=== PATIENT | female | born 1985 | race Caucasian/White ===

== ENCOUNTER 2016-05-25 12:00 | Emergency (ER) | payer SELFPAY ==
[~2016-05-25] VITALS: Wt 100.0 kg
[~2016-05-25 12:00] MED LIST: AMOX250C PO; IBUP-1542 PO; LAMO100T83 PO; LORA-444 PO; METO5TAB58 PO; OXYC-284 PO; PANT40TA3 PO; PHEN100C PO; ULT50 PO
== END 2016-05-25 14:03 | disposition left against medical advice (07) ==
LOC: FTE 12:00
DX: Z53.21 Procedure and treatment not carried out due to patient leaving prior to being seen by health care provider (principal)

== ENCOUNTER 2016-08-29 09:32 | Emergency (ER) | payer OTHER ==
[~2016-08-29] VITALS: Wt 88.0 kg
[~2016-08-29 09:32] MED LIST changes: +TRAM50TA2 PO; -ULT50 PO
[2016-08-29 10:38] LABS: ADD SCAN DIFF NO
[2016-08-29 10:41] LABS: ADD UMIC YES; URINE BILIRUBIN (Dip) 2+ (NEGATIVE); URINE BLOOD (Dip) 2+ (NEGATIVE); URINE COLOR YELLOW (YELLOW); URINE GLUCOSE (Dip) NEGATIVE (NEGATIVE); URINE KETONES (Dip) 15 (NEGATIVE); URINE LEUKOCYTE ESTERASE (Dip) NEGATIVE (NEGATIVE); URINE NITRITE (Dip) NEGATIVE (NEGATIVE); URINE TOTAL PROTEIN (Dip) 1+ (NEGATIVE); URINE UROBILINOGEN (Dip) 0.2 E.U./dL (0.1-1.0)
[2016-08-29 10:44] LABS: BASOPHILS % 0.3 % (0.0-2.0); EOSINOPHILS # 0.2 10^3/ul (0.0-0.5); EOSINOPHILS % 5.5 % (0.0-7.0); HEMATOCRIT 35.1 % (37.0-47.0); HEMOGLOBIN 11.3 g/dl (12.0-16.0); LYMPHOCYTES # 1.1 10^3/ul (0.8-2.9); LYMPHOCYTES % 32.5 % (15.0-51.0); MEAN CORPUSCULAR HEMOGLOBIN 25.6 pg (29.0-33.0); MEAN CORPUSCULAR HGB CONC 32.2 g/dl (32.0-37.0); MEAN CORPUSCULAR VOLUME 79.6 fl (82.0-101.0); MEAN PLATELET VOLUME 9.1 fl (7.4-10.4); MONOCYTE # 0.3 10^3/ul (0.3-0.9); MONOCYTES % 9.7 % (0.0-11.0); NEUTROPHIL # 1.7 10^3/ul (1.6-7.5); NEUTROPHILS % 51.7 % (39.0-77.0); PLATELET COUNT 235 10^3/UL (140-415); RED BLOOD COUNT 4.41 10^6/ul (4.20-5.40); RED CELL DISTRIBUTION WIDTH 14.9 % (11.5-14.5); WHITE BLOOD COUNT 3.3 10^3/ul (4.8-10.8)
[2016-08-29 10:51] LABS: ALBUMIN 4.3 g/dl (3.3-4.9); CHLORIDE 102 mmol/L (97-110)
[2016-08-29 10:52] LABS: SODIUM 143 mmol/L (135-144)
[2016-08-29 10:53] LABS: CREATININE 0.61 mg/dl (0.44-1.00)
[2016-08-29 10:54] LABS: ALANINE AMINOTRANSFERASE 56 IU/L (13-69); ALBUMIN/GLOBULIN RATIO 1.48; ALKALINE PHOSPHATASE 53 IU/L (42-121); ANION GAP 19 (8-16); ASPARTATE AMINO TRANSFERASE 50 IU/L (15-46); BILIRUBIN,INDIRECT 0.5 mg/dl (0-1.1); BILIRUBIN,TOTAL 0.5 mg/dl (0.2-1.3); BLOOD UREA NITROGEN 14 mg/dl (7-20); CARBON DIOXIDE 25 mmol/L (21-31); GLUCOSE 88 mg/dl (70-220); TOTAL PROTEIN 7.2 g/dl (6.1-8.1)
[2016-08-29 10:55] LABS: CALCIUM 9.4 mg/dl (8.4-10.2)
[2016-08-29 10:56] LABS: ACETAMINOPHEN < 10.0 ug/ml (10.0-30.0); ETHANOL < 10.0 mg/dl; SALICYLATE < 1.0 mg/dl (5.0-30.0)
[2016-08-29 11:03] LABS: BENZODIAZEPINES Negative (NEGATIVE)
[2016-08-29 11:05] LABS: CANNABINOIDS Positive (NEGATIVE)
[2016-08-29 11:06] LABS: OPIATES Positive (NEGATIVE)
[2016-08-29 11:09] LABS: ICTOTEST NEGATIVE (NEGATIVE)
[2016-08-29 11:10] LABS: BACTERIA,URINE OCCASIONAL
[2016-08-29 11:15] LABS: BARBITURATES Negative (NEGATIVE); COCAINE Negative (NEGATIVE)
--- NOTE | 2016-08-29 13:07 | PSY ---
Date/Time of Note Date/Time of Note DATE: 08/29/16 TIME: 12:55 Psychiatric Subjective Eval Consent Pt consented to telemedicine: Yes Subjective Evaluation Patient location: emergency Chief Complaint: SHAKY AND BODYACHES AND DEPRESSION FOR 2 WKS. DENIES SI AND HI. HEROIN USE Reason for consult: suicidal History of present illness patient is a 31 yo female homeless with PPH of depression and anxiety and for the past 2 weeks heroine and methamphetamine use, who came to the ER due to feeling suicidal and wanted to stop using drugs. SHe states that since she has been homeless she has been "hanging out with a bad crowd doing drugs" and she now wants to stop using. SHe has been having suicidaal thoughts and wants to run into a car, she states that she has been feeling depressed, hopeless and helpless for weeks due to homelessness and drug use. she has been having withdrawal symptoms from heroine use including shakes, body pain, stomach ach, nausea and severe anxiety , she denies any past or current psychotic symptoms, no current manic symptoms, no HI. Past psychiatric history denies Hospitalization: no Family History denies Medical history Problems Medical Problems: (1) Acute abdominal pain Status: Acute (2) Headache Status: Acute (3) Patient left without being seen Status: Acute (4) Shoulder pain Status: Chronic Allergies: Coded Allergies: ketorolac (Verified Allergy, Intermediate, 08/29/16) Pt states, " I feel sick, vomiting, hives." morphine (Verified Allergy, Mild, 08/29/16) metoclopramide (Verified Allergy, Unknown, 08/29/16) promethazine (Unverified Allergy, Unknown, 08/29/16) tramadol (Unverified Allergy, Unknown, 01/22/15) Substance Abuse Substance abuse history: Yes (heroine methamphetamine ) Prior substance abuse treatmen: No Social History Marital status: single Level of education: hs DPA/Conservatorship: No Occupation/Senior Living: none Psychiatric Objective Eval Review of Systems: Review of Systems: Not Applicable Physical Examination: Sleep: Insomnia Appetite: Decreased Energy: Decreased Interest: Decreased Mental Status Examination: Appearance: Disheveled Eye Contact: Good Psychomotor Activity: Normal Behavior: Cooperative Speech: Clear AFFECT: Depressed Mood: Depressed Though Process: Linear Thought Content: Normal Suicidal: Yes Homicidal: No On 72 hour hold: No Orientation: x3 Cognition: Alert Insight: Impared Judgement: Impared Attention Span: Distractible Laboratory Results Laboratory Tests Test 08/29/16 10:22 08/29/16 10:33 Urine Color YELLOW Urine Clarity CLEAR Urine pH 6.0 Urine Specific [place] >=1.030 Urine Ketones 15 Urine Nitrite NEGATIVE Urine Bilirubin 2+ Urine Ictotest NEGATIVE Urine Urobilinogen 0.2 E.U./dL Urine Leukocyte Esterase NEGATIVE Urine Microscopic RBC 5-10/HPF Urine Microscopic WBC NONE SEEN/HPF Urine Epithelial Cells FEW Urine Bacteria OCCASIONAL Urine Hemoglobin 2+ Urine Glucose NEGATIVE% Urine Total Protein 1+ Urine Opiates Screen Positive Urine Barbiturates Negative Urine Amphetamines Screen POSITIVE Urine Benzodiazepines Screen Negative Urine Cocaine Screen Negative Urine Cannabinoids Positive White Blood Count 3.310^3/ul Red Blood Count 4.4110^6/ul Hemoglobin 11.3g/dl Hematocrit 35.1% Mean Corpuscular Volume 79.6fl Mean Corpuscular Hemoglobin 25.6pg Mean Corpuscular Hemoglobin Concent 32.2g/dl Red Cell Distribution Width 14.9% Platelet Count 01992^3/UL Mean Platelet Volume 9.1fl Neutrophils % 51.7% Lymphocytes % 32.5% Monocytes % 9.7% Eosinophils % 5.5% Basophils % 0.3% Nucleated Red Blood Cells % 0.0/100WBC Neutrophils # 1.710^3/ul Lymphocytes # 1.110^3/ul Monocytes # 0.310^3/ul Eosinophils # 0.210^3/ul Basophils # 0.010^3/ul Nucleated Red Blood Cells # 0.010^3/ul Sodium Level 143mmol/L Potassium Level 3.0mmol/L Chloride Level 102mmol/L Carbon Dioxide Level 25mmol/L Anion Gap 19 Blood Urea Nitrogen 14mg/dl Creatinine 0.61mg/dl Glucose Level 88mg/dl Calcium Level 9.4mg/dl Total Bilirubin 0.5mg/dl Direct Bilirubin 0.00mg/dl Indirect Bilirubin 0.5mg/dl Aspartate Amino Transf (AST/SGOT) 50IU/L Alanine Aminotransferase (ALT/SGPT) 56IU/L Alkaline Phosphatase 53IU/L Total Protein 7.2g/dl Albumin 4.3g/dl Globulin 2.90g/dl Albumin/Globulin Ratio 1.48 Salicylates Level < 1.0mg/dl Acetaminophen Level < 10.0ug/ml Ethyl Alcohol Level < 10.0mg/dl Assessment and Plan Assessment/Diagnosis [place] I: major depressive do severe without psychotic symptoms, anxiety do nos amphetamine abuse heroine withdrawal [place] II: deferred [place] III: as per record [place] IV: homeless [place] V: gaf 25 Recommendation/Plan Medication Management ativan 2 mg po tid first dose stat for anxiety flexeril 10 mg po tid for muscle pain trazodone 50 mg po qhs prn insomnia Follow-up/Disposition Please admit patient on involuntary status due to Danger to self, In my opinion, patient currently MEETS criterion for inpatient care and CANNOT be safely treated at a lower level of care today as evidenced by the following risk factors: Current and Recent Suicidal Ideation Previous suicide attempt and severe self-destructive behavior Intense feelings of hopelessness and lack of future orientation. Significant recent DETERIORATION in function, behavior and thought processes Substance ABUSE in conjunction with another psychiatric disorder 515 Recommendation: ALENA Bhatt MD Aug 29, 2016 13:06
--- NOTE | 2016-08-29 14:18 | ERA ---
ER Documentation Chief Complaint Date/Time DATE: 08/29/16 TIME: 14:09 Chief Complaint SHAKY AND BODYACHES AND DEPRESSION FOR 2 WKS. DENIES SI AND HI. HEROIN USE HPI 31-year-old woman with a history of depression and drug abuse states she is withdrawing from drugs, also states she is so depressed she wants to kill her self. She has been using heroin and methamphetamines, she has had no fevers or chills, no vomiting or diarrhea, no dysuria, no chest pain or shortness of breath. ROS All systems reviewed and are negative except as per history of present illness. Medications Home Meds Reported Medications Phenytoin* Sodium Extended (Dilantin*) 100 Mg Capsule, 500 MG PO HS, CAP 01/23/15 Lamotrigine* (Lamictal*) 100 Mg Tablet, 300 MG PO QHS, TAB 01/23/15 Lorazepam* (Ativan*) 2 Mg Tablet, 2 MG PO DAILY, TAB 01/17/15 Discontinued Reported Medications Oxycodone Hcl-Acetaminophen* (Percocet*) 10-325 Mg Tablet, 1-2 TAB PO Q6 Y for PAIN, TAB 01/23/15 Discontinued Scripts Ibuprofen* (Ibuprofen*) 600 Mg Tablet, 600 MG PO Q6H Y for PAIN, #30 TAB Prov:SIMI GLASGOW 04/23/16 Tramadol HCl (Tramadol HCl) 50 Mg Tablet, 50 MG PO Q8H Y for PAIN, #30 TAB Prov:EBAR ARMANDO MD 03/25/16 Metoclopramide* (Reglan*) 5 Mg Tablet, 5 MG PO Q6H Y for NAUSEA AND OR VOMITING , #20 TAB Prov:BEAR ARMANDO MD 03/25/16 Amoxicillin* (Amoxicillin*) 250 Mg Cap, 250 MG PO Q8, #15 CAP Prov:BEAR ARMANDO MD 03/25/16 Pantoprazole* (Protonix*) 40 Mg Tablet.dr, 40 MG PO BID, #60 TAB Prov:BEAR ARMANDO MD 03/25/16 Allergies Allergies: Coded Allergies: ketorolac (Verified Allergy, Intermediate, 08/29/16) Pt states, " I feel sick, vomiting, hives." morphine (Verified Allergy, Mild, 08/29/16) metoclopramide (Verified Allergy, Unknown, 08/29/16) promethazine (Unverified Allergy, Unknown, 08/29/16) tramadol (Unverified Allergy, Unknown, 01/22/15) PMhx/Soc Depression, drug abuse, gastritis History of Surgery: Yes (APPENDECTOMY 5 YEARS AGO) Anesthesia Reaction: No Hx Neurological Disorder: Yes (SEIZURE DISORDER) Hx Respiratory Disorders: No Hx Cardiac Disorders: No Hx Psychiatric Problems: Yes (depression) Hx Miscellaneous Medical Probl: No Hx Alcohol Use: Yes Hx Substance Use: Yes Hx Tobacco Use: Yes Smoking Status: Current every day smoker FmHx Family History: No diabetes Physical Exam Vitals Vital Signs Date Time Temp Pulse Resp B/P Pulse Ox O2 Delivery O2 Flow Rate FiO2 08/29/16 09:55 98.0 112 21 127/73 99 Room Air 08/29/16 09:36 98.0 115 21 127/73 99 Physical Exam GENERAL: Well-developed, well-nourished, appears depressed HEENT: Moist mucous membranes, pink conjunctiva, no cervical spine tenderness or step-off deformities, no goiter, no jaundice or icterus, extraocular movements intact without pain. No submandibular induration, and no pharyngeal erythema NEURO: Alert and oriented 3, cranial nerves II through XII intact bilaterally, pupils equal round reactive to light, no focal deficits or facial asymmetry, sensation intact distally Strength 5/5 in upper and lower extremities bilaterally CARDIAC: Regular rate and rhythm, no murmurs rubs or gallops LUNGS: Clear bilaterally no wheezing crackles or stridor ABDOMEN: Soft nontender, no guarding, no rigidity, no rebound, no psoas sign no obturator sign. Normoactive bowel sounds SKIN: Warm and dry to touch, no abrasions, contusions, or hematomas, no lacerations, no ecchymosis, no target lesions, and without ulcers EXTREMITIES: No clubbing cyanosis or edema, calves are bilaterally symmetrical, no Homans sign, no popliteal cord sign. Distal pulses equal and bilateral PSYCH: Depressed affect Result Diagram: 08/29/16 1033 08/29/16 1033 Results 24 hrs Laboratory Tests Test 08/29/16 10:22 08/29/16 10:33 Urine Color YELLOW Urine Clarity CLEAR Urine pH 6.0 Urine Specific [place] >=1.030 Urine Ketones 15 Urine Nitrite NEGATIVE Urine Bilirubin 2+ Urine Ictotest NEGATIVE Urine Urobilinogen 0.2 E.U./dL Urine Leukocyte Esterase NEGATIVE Urine Microscopic RBC 5-10/HPF Urine Microscopic WBC NONE SEEN/HPF Urine Epithelial Cells FEW Urine Bacteria OCCASIONAL Urine Hemoglobin 2+ Urine Glucose NEGATIVE% Urine Total Protein 1+ Urine Opiates Screen Positive Urine Barbiturates Negative Urine Amphetamines Screen POSITIVE Urine Benzodiazepines Screen Negative Urine Cocaine Screen Negative Urine Cannabinoids Positive White Blood Count 3.310^3/ul Red Blood Count 4.4110^6/ul Hemoglobin 11.3g/dl Hematocrit 35.1% Mean Corpuscular Volume 79.6fl Mean Corpuscular Hemoglobin 25.6pg Mean Corpuscular Hemoglobin Concent 32.2g/dl Red Cell Distribution Width 14.9% Platelet Count 08690^3/UL Mean Platelet Volume 9.1fl Neutrophils % 51.7% Lymphocytes % 32.5% Monocytes % 9.7% Eosinophils % 5.5% Basophils % 0.3% Nucleated Red Blood Cells % 0.0/100WBC Neutrophils # 1.710^3/ul Lymphocytes # 1.110^3/ul Monocytes # 0.310^3/ul Eosinophils # 0.210^3/ul Basophils # 0.010^3/ul Nucleated Red Blood Cells # 0.010^3/ul Sodium Level 143mmol/L Potassium Level 3.0mmol/L Chloride Level 102mmol/L Carbon Dioxide Level 25mmol/L Anion Gap 19 Blood Urea Nitrogen 14mg/dl Creatinine 0.61mg/dl Glucose Level 88mg/dl Calcium Level 9.4mg/dl Total Bilirubin 0.5mg/dl Direct Bilirubin 0.00mg/dl Indirect Bilirubin 0.5mg/dl Aspartate Amino Transf (AST/SGOT) 50IU/L Alanine Aminotransferase (ALT/SGPT) 56IU/L Alkaline Phosphatase 53IU/L Total Protein 7.2g/dl Albumin 4.3g/dl Globulin 2.90g/dl Albumin/Globulin Ratio 1.48 Salicylates Level < 1.0mg/dl Acetaminophen Level < 10.0ug/ml Ethyl Alcohol Level < 10.0mg/dl Procedures/MDM Security one-to-one watch was established and psychiatric performance improvement manager was contacted. For complaints of body aches administer Percocet 1 tablet p.o. Tele-psychiatrist evaluated the patient and recommended a 5150 psychiatric hold. test was negative, urine analysis was negative for infection. CBC revealed mild leukopenia 3.3, electrolytes were unremarkable, liver function tests normal, aspirin Tylenol alcohol levels were negative. Urine drug screen positive for methamphetamine. Patient's behavioral symptoms have stabilized while in the department. Patient is medically cleared and appropriate for psychiatric evaluation and work up. No e/o neurologic, toxic, infectious, or metabolic cause. Departure Diagnosis: Primary Impression: Depression Qualified Code: F32.1 - Moderate single current episode of major depressive disorder Additional Impressions: Suicidal ideation Methamphetamine abuse Condition: YONG Lamar MD Aug 29, 2016 14:18
[2016-08-29] MEDS ORDERED: LORAZEPAM 1 MG TAB PO ONE (16:00)
[2016-08-29 22:30] VITALS: BP 122/86; PULSE 86; RESP 16; TEMP 98.1
== END 2016-08-29 23:03 ==
LOC: E/R 09:32
DX: F32.1 Major depressive disorder, single episode, moderate (principal); R45.851 Suicidal ideations; F15.10 Other stimulant abuse, uncomplicated; F17.210 Nicotine dependence, cigarettes, uncomplicated
CPT/HCPCS: 80053; 80306; 80307; 81001; 81003; 85025; Z7610; 99285

== ENCOUNTER 2016-09-01 21:02 | Emergency (ER) | payer OTHER ==
[~2016-09-01] VITALS: Ht 170.2 cm; Wt 94.0 kg
[~2016-09-01 21:02] MED LIST changes: -AMOX250C PO; -IBUP-1542 PO; -METO5TAB58 PO; -OXYC-284 PO; -PANT40TA3 PO; -TRAM50TA2 PO
[2016-09-01 21:22] VITALS: Ht 170.2 cm; Wt 94.0 kg
[2016-09-01 23:58] LABS: ADD SCAN DIFF NO
[2016-09-02] LABS: BASOPHILS % 0.4 % (0.0-2.0); EOSINOPHILS # 0.2 10^3/ul (0.0-0.5); EOSINOPHILS % 2.9 % (0.0-7.0); HEMATOCRIT 36.4 % (37.0-47.0); HEMOGLOBIN 11.3 g/dl (12.0-16.0); LYMPHOCYTES # 2.6 10^3/ul (0.8-2.9); MEAN CORPUSCULAR HEMOGLOBIN 25.1 pg (29.0-33.0); MEAN CORPUSCULAR VOLUME 80.7 fl (82.0-101.0); MEAN PLATELET VOLUME 9.2 fl (7.4-10.4); MONOCYTE # 0.5 10^3/ul (0.3-0.9); MONOCYTES % 8.2 % (0.0-11.0); NEUTROPHIL # 2.3 10^3/ul (1.6-7.5); NEUTROPHILS % 41.3 % (39.0-77.0); PLATELET COUNT 259 10^3/UL (140-415); RED BLOOD COUNT 4.51 10^6/ul (4.20-5.40); RED CELL DISTRIBUTION WIDTH 15.7 % (11.5-14.5); WHITE BLOOD COUNT 5.6 10^3/ul (4.8-10.8)
[2016-09-02 00:09] LABS: ADD UMIC YES; URINE BILIRUBIN (Dip) NEGATIVE (NEGATIVE); URINE BLOOD (Dip) 1+ (NEGATIVE); URINE COLOR LT. YELLOW (YELLOW); URINE GLUCOSE (Dip) NEGATIVE (NEGATIVE); URINE KETONES (Dip) NEGATIVE (NEGATIVE); URINE LEUKOCYTE ESTERASE (Dip) NEGATIVE (NEGATIVE); URINE NITRITE (Dip) NEGATIVE (NEGATIVE); URINE TOTAL PROTEIN (Dip) NEGATIVE (NEGATIVE); URINE UROBILINOGEN (Dip) 0.2 E.U./dL (0.1-1.0)
[2016-09-02 00:17] LABS: ALANINE AMINOTRANSFERASE 42 IU/L (13-69); ALBUMIN 3.9 g/dl (3.3-4.9); ALKALINE PHOSPHATASE 62 IU/L (42-121); ANION GAP 12 (8-16); ASPARTATE AMINO TRANSFERASE 27 IU/L (15-46); BILIRUBIN,INDIRECT 0.1 mg/dl (0-1.1); BILIRUBIN,TOTAL 0.1 mg/dl (0.2-1.3); BLOOD UREA NITROGEN 11 mg/dl (7-20); CARBON DIOXIDE 29 mmol/L (21-31); CHLORIDE 108 mmol/L (97-110); CREATININE 0.55 mg/dl (0.44-1.00); GLUCOSE 99 mg/dl (70-220); POTASSIUM 3.8 mmol/L (3.5-5.1); SODIUM 145 mmol/L (135-144); TOTAL PROTEIN 6.9 g/dl (6.1-8.1)
[2016-09-02 00:32] LABS: SQUAMOUS EPITHELIAL CELL,UR FEW
[2016-09-02 00:33] LABS: BACTERIA,URINE FEW
--- NOTE | 2016-09-02 00:56 | PSY ---
Date/Time of Note Date/Time of Note DATE: 09/02/16 TIME: 00:43 Psychiatric Subjective Eval Consent Pt consented to telemedicine: Yes Subjective Evaluation Patient location: emergency Chief Complaint: suicidal ideations x 1 day, just got dc'd from [facility] today Medical history Problems Medical Problems: (1) Acute abdominal pain Status: Acute (2) Depression Status: Acute (3) Headache Status: Acute (4) Methamphetamine abuse Status: Acute (5) Patient left without being seen Status: Acute (6) Shoulder pain Status: Chronic (7) Suicidal ideation Status: Acute Allergies: Coded Allergies: ketorolac (Verified Allergy, Intermediate, 09/01/16) Pt states, " I feel sick, vomiting, hives." morphine (Verified Allergy, Mild, 09/01/16) metoclopramide (Verified Allergy, Unknown, 09/01/16) promethazine (Unverified Allergy, Unknown, 09/01/16) tramadol (Unverified Allergy, Unknown, 09/01/16) Psychiatric Objective Eval Mental Status Examination: Laboratory Results Laboratory Tests Test 09/01/16 22:34 09/01/16 23:35 White Blood Count 5.610^3/ul Red Blood Count 4.5110^6/ul Hemoglobin 11.3g/dl Hematocrit 36.4% Mean Corpuscular Volume 80.7fl Mean Corpuscular Hemoglobin 25.1pg Mean Corpuscular Hemoglobin Concent 31.0g/dl Red Cell Distribution Width 15.7% Platelet Count 22094^3/UL Mean Platelet Volume 9.2fl Neutrophils % 41.3% Lymphocytes % 47.0% Monocytes % 8.2% Eosinophils % 2.9% Basophils % 0.4% Nucleated Red Blood Cells % 0.0/100WBC Neutrophils # 2.310^3/ul Lymphocytes # 2.610^3/ul Monocytes # 0.510^3/ul Eosinophils # 0.210^3/ul Basophils # 0.010^3/ul Nucleated Red Blood Cells # 0.010^3/ul Sodium Level 145mmol/L Potassium Level 3.8mmol/L Chloride Level 108mmol/L Carbon Dioxide Level 29mmol/L Anion Gap 12 Blood Urea Nitrogen 11mg/dl Creatinine 0.55mg/dl Glucose Level 99mg/dl Calcium Level 9.0mg/dl Total Bilirubin 0.1mg/dl Direct Bilirubin 0.00mg/dl Indirect Bilirubin 0.1mg/dl Aspartate Amino Transf (AST/SGOT) 27IU/L Alanine Aminotransferase (ALT/SGPT) 42IU/L Alkaline Phosphatase 62IU/L Total Protein 6.9g/dl Albumin 3.9g/dl Globulin 3.00g/dl Albumin/Globulin Ratio 1.30 Urine Color LT. YELLOW Urine Clarity CLEAR Urine pH 6.0 Urine Specific [place] 1.015 Urine Ketones NEGATIVE Urine Nitrite NEGATIVE Urine Bilirubin NEGATIVE Urine Urobilinogen 0.2 E.U./dL Urine Leukocyte Esterase NEGATIVE Urine Microscopic RBC 2-5/HPF Urine Microscopic WBC 0-2/HPF Urine Squamous Epithelial Cells FEW Urine Bacteria FEW Urine Hemoglobin 1+ Urine Glucose NEGATIVE% Urine Total Protein NEGATIVE Assessment Additional comments: IDENTIFYING INFORMATION: 31 year old Female patient who is currently located at the hospital and for whom psychiatric consultation was requested. SOURCES OF INFORMATION: The patient who appears to be reliable and the medical records; the nursing staff. CHIEF COMPLAINT: "things fell through". HISTORY OF PRESENT ILLNESS: The patient was interviewed via telemedicine in the presence of and under the supervision of nursing staff of the hospital. The consent to conducting this interview via telemedicine was obtained by the nursing staff at the hospital. ULISES Martinez reports that the patient presented with SI with plan to kill herself after the discharge plan fell through. Pt was discharged earlier today from the psychiatric unit. Is not on a hold. The patient reports that she had SI with plan to step in front of a car after things fell through in terms of staying at her friend. Admits to feeling depressed persistently, having anhedonia, insomnia, fatigue, hopelessness, helplessness. Denies having AH, VH, delusions, low appetite. The patient denies using alcohol heavily or regularly. The patient reports using meth and heroin via [facility] daily for 2 weeks. Last use was 5 days ago. The patient denies using any other substances. In terms of past psychiatric history, the patient reports having a history of past psychiatric hospitalizations. The patient reports having a history of no past suicide attempts. The patient has a h/o depression even in the absence of drug use. PAST MEDICAL HISTORY: none. CURRENT MEDICATIONS: prosac, clonazepam 0.5 mg po prn. ALLERGIES TO MEDICATIONS: morphine, tramadol, promethazine, metoclopramide, ketorolac SOCIAL HISTORY: homeless, single, no children; unemployed; no access to firearms. LABORATORY TESTS: UDS positive for opiates, amphetamines, cannabinoids, alcohol was not detected, CBC with WBCs of 3.3, hemoglobin 11.3, hematocrit 35.1, MCV 79.6, MCH 25.6. CMP with anion gap of 19, AST 50. test negative, TSH within normal range from April 2016. REVIEW OF SYSTEMS: Constitutional (e.g., fever, weight loss): negative; Eyes, Ears, Nose, Mouth, Throat: negative; Cardiovascular: negative; Respiratory: negative; Gastrointestinal: negative; Genitourinary: negative; Musculoskeletal: + knee pain; Integumentary (skin and/or breast): negative; Neurological: negative; Psychiatric: as per HPI; Endocrine: negative; Hematologic/Lymphatic: negative; Allergic/Immunologic: negative. MENTAL STATUS EXAMINATION: General Appearance and Behavior: Calm, cooperative with the interview, pleasant with the current interviewer, makes good eye contact, fairly groomed, no abnormal movements noted. Speech: Slow rate, regular rhythm,normal latency, low volume, normal amount. Flow of thought: sequential, logical, goal-directed. Content of thought: no auditory hallucinations, no visual hallucinations, no delusions, positive for suicidal ideation; no homicidal ideation. Mood: "depressed". Affect: dysthymic, dysphoric, not reactive. Attention: normal based on the interview. Insight: fair. Judgment: poor. Memory: normal based on the interview. Sensorium: alert and oriented to person, place and date. ASSESSMENT: The patient's presentation and history are consistent with the diagnosis of major depressive disorder, opioid use disorder, stimulant use disorder. The patient presents in a major depressive episode in the context of drug use. No evidence of psychosis, herbert, hypomania on exam. [place] I: major depressive disorder, opioid use disorder, stimulant use disorder. [place] II: Deferred. [place] III: see PMH. [place] IV: social stressors. [place] V: GAF:10. PLAN: - Medication management: Would continue home medications for now. Would start haloperidol 5 mg IM PRN severe agitation q4 hours. Would start diphenhydramine 50 mg IM PRN severe agitation q4 hours. Would start lorazepam 2 mg IM PRN severe agitation q4 hours Will defer to the inpatient psychiatry team for other medication changes. - Labs: No other laboratory tests are needed at this time. - Psychotherapy: Provided supportive psychotherapy and psychoeducation. - Disposition: Would recommend voluntary admission to the inpatient psychiatric unit as the patient would benefit from such an intervention so long as the patient has been cleared medically for admission to psychiatry. The patient is agreeable to being hospitalized in the inpatient psychiatric unit at this time. Would place on suicide precautions. The patient fulfills criteria for being placed on involuntary hold due to being a danger to self. I called the emergency room physician who is taking care of the patient to discuss about the above plan but the emergency room physician is not available at this time. I left my phone number with the hospital staff requesting a callback so that the emergency room physician can reach me when they become available. Patient would preferred to be transferred [facility] in [place], [place], if possible because she had a good experience there. SAULO AGOSTO MD Sep 02, 2016 00:56
[2016-09-02 01:01] LABS: ACETAMINOPHEN < 10.0 ug/ml (10.0-30.0)
[2016-09-02 01:02] LABS: ETHANOL < 10.0 mg/dl; SALICYLATE < 1.0 mg/dl (5.0-30.0)
--- NOTE | 2016-09-02 01:06 | ERA ---
ER Documentation Chief Complaint Date/Time DATE: 09/02/16 TIME: 01:06 Chief Complaint suicidal ideations x 1 day, just got dc'd from [facility] today HPI This is a 31-year-old female comes in because of suicidal ideation for the past day. She was just discharged from the hospital from the psychiatric unit earlier today. No fevers no chills. No other current complaints ROS All systems reviewed and are negative except as per history of present illness. Medications Home Meds Reported Medications Phenytoin* Sodium Extended (Dilantin*) 100 Mg Capsule, 500 MG PO HS, CAP 01/23/15 Lamotrigine* (Lamictal*) 100 Mg Tablet, 300 MG PO QHS, TAB 01/23/15 Lorazepam* (Ativan*) 2 Mg Tablet, 2 MG PO DAILY, TAB 01/17/15 Discontinued Reported Medications Oxycodone Hcl-Acetaminophen* (Percocet*) 10-325 Mg Tablet, 1-2 TAB PO Q6 Y for PAIN, TAB 01/23/15 Discontinued Scripts Ibuprofen* (Ibuprofen*) 600 Mg Tablet, 600 MG PO Q6H Y for PAIN, #30 TAB Prov:SIMI GLASGOW 04/23/16 Tramadol HCl (Tramadol HCl) 50 Mg Tablet, 50 MG PO Q8H Y for PAIN, #30 TAB Prov:BEAR ARMANDO MD 03/25/16 Metoclopramide* (Reglan*) 5 Mg Tablet, 5 MG PO Q6H Y for NAUSEA AND OR VOMITING , #20 TAB Prov:BEAR ARMANDO MD 03/25/16 Amoxicillin* (Amoxicillin*) 250 Mg Cap, 250 MG PO Q8, #15 CAP Prov:BEAR ARMANDO MD 03/25/16 Pantoprazole* (Protonix*) 40 Mg Tablet.dr, 40 MG PO BID, #60 TAB Prov:BEAR ARMANDO MD 03/25/16 Allergies Allergies: Coded Allergies: ketorolac (Verified Allergy, Intermediate, 09/01/16) Pt states, " I feel sick, vomiting, hives." morphine (Verified Allergy, Mild, 09/01/16) metoclopramide (Verified Allergy, Unknown, 09/01/16) promethazine (Unverified Allergy, Unknown, 09/01/16) tramadol (Unverified Allergy, Unknown, 09/01/16) PMhx/Soc History of Surgery: Yes (APPENDECTOMY 5 YEARS AGO) Anesthesia Reaction: No Hx Neurological Disorder: Yes (SEIZURE DISORDER) Hx Respiratory Disorders: No Hx Cardiac Disorders: No Hx Psychiatric Problems: Yes (depression) Hx Miscellaneous Medical Probl: No Hx Alcohol Use: Yes Hx Substance Use: Yes (METH AND HEROIN) Hx Tobacco Use: Yes Smoking Status: Current every day smoker Physical Exam Vitals Vital Signs Date Time Temp Pulse Resp B/P Pulse Ox O2 Delivery O2 Flow Rate FiO2 09/01/16 21:22 97.3 89 20 129/79 100 Physical Exam Const: [] Head: Atraumatic Eyes: Normal Conjunctiva ENT: Normal External Ears, Nose and Mouth. Neck: Full range of motion..~ No meningismus. Resp: Clear to auscultation bilaterally Cardio: Regular rate and rhythm, no murmurs Abd: Soft, non tender, non distended. Normal bowel sounds Skin: No petechiae or rashes Back: No midline or flank tenderness Ext: No cyanosis, or edema Neur: Awake and alert Psych: Normal Mood and Affect Result Diagram: 09/01/16223309/01/162233 Results 24 hrs Laboratory Tests Test 09/01/16 22:34 09/01/16 23:35 White Blood Count 5.610^3/ul Red Blood Count 4.5110^6/ul Hemoglobin 11.3g/dl Hematocrit 36.4% Mean Corpuscular Volume 80.7fl Mean Corpuscular Hemoglobin 25.1pg Mean Corpuscular Hemoglobin Concent 31.0g/dl Red Cell Distribution Width 15.7% Platelet Count 09641^3/UL Mean Platelet Volume 9.2fl Neutrophils % 41.3% Lymphocytes % 47.0% Monocytes % 8.2% Eosinophils % 2.9% Basophils % 0.4% Nucleated Red Blood Cells % 0.0/100WBC Neutrophils # 2.310^3/ul Lymphocytes # 2.610^3/ul Monocytes # 0.510^3/ul Eosinophils # 0.210^3/ul Basophils # 0.010^3/ul Nucleated Red Blood Cells # 0.010^3/ul Sodium Level 145mmol/L Potassium Level 3.8mmol/L Chloride Level 108mmol/L Carbon Dioxide Level 29mmol/L Anion Gap 12 Blood Urea Nitrogen 11mg/dl Creatinine 0.55mg/dl Glucose Level 99mg/dl Calcium Level 9.0mg/dl Total Bilirubin 0.1mg/dl Direct Bilirubin 0.00mg/dl Indirect Bilirubin 0.1mg/dl Aspartate Amino Transf (AST/SGOT) 27IU/L Alanine Aminotransferase (ALT/SGPT) 42IU/L Alkaline Phosphatase 62IU/L Total Protein 6.9g/dl Albumin 3.9g/dl Globulin 3.00g/dl Albumin/Globulin Ratio 1.30 Salicylates Level < 1.0mg/dl Acetaminophen Level < 10.0ug/ml Ethyl Alcohol Level < 10.0mg/dl Urine Color LT. YELLOW Urine Clarity CLEAR Urine pH 6.0 Urine Specific [place] 1.015 Urine Ketones NEGATIVE Urine Nitrite NEGATIVE Urine Bilirubin NEGATIVE Urine Urobilinogen 0.2 E.U./dL Urine Leukocyte Esterase NEGATIVE Urine Microscopic RBC 2-5/HPF Urine Microscopic WBC 0-2/HPF Urine Squamous Epithelial Cells FEW Urine Bacteria FEW Urine Hemoglobin 1+ Urine Glucose NEGATIVE% Urine Total Protein NEGATIVE Procedures/MDM Patient's behavioral symptoms have stabilized while in the department. Patient is medically cleared and appropriate for psychiatric evaluation and work up. No e/o neurologic, toxic, infectious, or metabolic cause. Departure Diagnosis: Primary Impression: Suicidal ideation Condition: Stable MERLENE LOMBARDI Sep 02, 2016 01:06
[2016-09-02 01:17] LABS: BENZODIAZEPINES Negative (NEGATIVE)
[2016-09-02 01:22] LABS: BARBITURATES Negative (NEGATIVE); CANNABINOIDS Positive (NEGATIVE); COCAINE Negative (NEGATIVE); OPIATES Negative (NEGATIVE)
[2016-09-02] MEDS ORDERED: ACETAMINOPHEN 500 MG TAB PO STA (09:39)
[2016-09-02 10:44] VITALS: BP 129/82; PULSE 69; RESP 16; TEMP 98.2
== END 2016-09-02 10:45 | disposition home or self-care (01) ==
LOC: E/R 21:02
DX: F32.9 Major depressive disorder, single episode, unspecified (principal); R45.851 Suicidal ideations; F17.210 Nicotine dependence, cigarettes, uncomplicated
CPT/HCPCS: 80053; 80306; 80307; 81001; 85025; Z7502; Z7610; 81003; 99283

== ENCOUNTER 2016-09-14 07:25 | Emergency (ER) | payer OTHER ==
[~2016-09-14] VITALS: Ht 160 cm; Wt 92.0 kg
[2016-09-14 07:29] VITALS: Ht 160 cm; Wt 92.0 kg
[2016-09-14 08:30] LABS: ADD SCAN DIFF NO
--- NOTE | 2016-09-14 08:32 | ERA ---
ER Documentation Chief Complaint Date/Time DATE: 09/14/16 TIME: 08:26 Chief Complaint feeling depressed , [place] jump [place] HPI Patient is a 31-year-old female who presents with 1 month of worsening depression associated with passive suicidality until today, when she was preparing [place]. A bystander pulled up in a car and convinced her not to jump, and gave her a ride to the emergency department. The patient reports hospitalization approximately 2 weeks ago for depression and was prescribed Prozac, but states that it is not helping her. She denies any pill ingestion today, or drug use. Last menstrual period was 2-1/2 weeks ago. Patient denies auditory hallucinations. ROS All systems reviewed and are negative except as per history of present illness. Medications Home Meds Reported Medications Phenytoin* Sodium Extended (Dilantin*) 100 Mg Capsule, 500 MG PO HS, CAP 01/23/15 Lamotrigine* (Lamictal*) 100 Mg Tablet, 300 MG PO QHS, TAB 01/23/15 Lorazepam* (Ativan*) 2 Mg Tablet, 2 MG PO DAILY, TAB 01/17/15 Allergies Allergies: Coded Allergies: ketorolac (Verified Allergy, Intermediate, 09/01/16) Pt states, " I feel sick, vomiting, hives." morphine (Verified Allergy, Mild, 09/01/16) metoclopramide (Verified Allergy, Unknown, 09/01/16) promethazine (Unverified Allergy, Unknown, 09/01/16) tramadol (Unverified Allergy, Unknown, 09/01/16) PMhx/Soc Past medical history: Depression, osteosarcoma of right knee, seizure disorder ( patient was previously on medication but has not had a seizure for 2 years and is no longer on medication) Past surgical history: Excision of osteosarcoma of right knee Social history: Smokes cigarettes, denies alcohol, reports former methamphetamine use with last use 2 weeks ago. Patient is homeless and has been sleeping on the street. History of Surgery: No Anesthesia Reaction: No Hx Neurological Disorder: No Hx Respiratory Disorders: No Hx Cardiac Disorders: No Hx Psychiatric Problems: Yes Hx Miscellaneous Medical Probl: Yes Hx Alcohol Use: No Hx Substance Use: No Hx Tobacco Use: No Smoking Status: Never smoker FmHx Family History: No coronary disease, No diabetes Physical Exam Vitals Vital Signs Date Time Temp Pulse Resp B/P Pulse Ox O2 Delivery O2 Flow Rate FiO2 09/14/16 07:29 97.8 106 18 113/68 98 Physical Exam Const: Alert, no acute distress Head: Atraumatic Eyes: Normal Conjunctiva, no pallor, no icterus ENT: Normal External Ears, Nose and Mouth. Neck: Full range of motion..~ No meningismus. Resp: Clear to auscultation bilaterally, no wheezes, no rales Cardio: Regular rate and rhythm, no murmurs Abd: Soft, non tender, non distended. Normal bowel sounds Skin: No petechiae or rashes Back: No midline or flank tenderness Ext: No cyanosis, or edema Neur: Awake and alert, cranial nerves II through XII intact bilaterally, strength and sensation intact in 4 extremities. Psych: Depressed mood and Affect Result Diagram: 09/14/1680409/14/16804 Results 24 hrs Laboratory Tests Test 09/14/16 07:45 09/14/16 08:05 Urine Color LT. YELLOW Urine Clarity CLEAR Urine pH 6.0 Urine Specific [place] 1.025 Urine Ketones NEGATIVE Urine Nitrite NEGATIVE Urine Bilirubin NEGATIVE Urine Urobilinogen 0.2 E.U./dL Urine Leukocyte Esterase NEGATIVE Urine Microscopic RBC 2-5/HPF Urine Microscopic WBC 2-5/HPF Urine Epithelial Cells FEW Urine Bacteria FEW Urine Hemoglobin 1+ Urine Glucose NEGATIVE% Urine Total Protein NEGATIVE Urine Test NEGATIVE Urine Opiates Screen NEGATIVE Urine Barbiturates NEGATIVE Urine Amphetamines Screen NEGATIVE Urine Benzodiazepines Screen NEGATIVE Urine Cocaine Screen NEGATIVE Urine Cannabinoids POSITIVE White Blood Count 6.810^3/ul Red Blood Count 5.1510^6/ul Hemoglobin 12.9g/dl Hematocrit 40.3% Mean Corpuscular Volume 78.3fl Mean Corpuscular Hemoglobin 25.0pg Mean Corpuscular Hemoglobin Concent 32.0g/dl Red Cell Distribution Width 16.0% Platelet Count 69996^3/UL Mean Platelet Volume 9.3fl Neutrophils % 63.3% Lymphocytes % 25.5% Monocytes % 8.1% Eosinophils % 2.2% Basophils % 0.6% Nucleated Red Blood Cells % 0.0/100WBC Neutrophils # 4.310^3/ul Lymphocytes # 1.710^3/ul Monocytes # 0.610^3/ul Eosinophils # 0.210^3/ul Basophils # 0.010^3/ul Nucleated Red Blood Cells # 0.010^3/ul Sodium Level 141mmol/L Potassium Level 3.8mmol/L Chloride Level 105mmol/L Carbon Dioxide Level 22mmol/L Anion Gap 18 Blood Urea Nitrogen 13mg/dl Creatinine 0.58mg/dl Glucose Level 105mg/dl Calcium Level 9.5mg/dl Total Bilirubin 0.6mg/dl Direct Bilirubin 0.00mg/dl Indirect Bilirubin 0.6mg/dl Aspartate Amino Transf (AST/SGOT) 22IU/L Alanine Aminotransferase (ALT/SGPT) 31IU/L Alkaline Phosphatase 56IU/L Total Protein 7.6g/dl Albumin 4.3g/dl Globulin 3.30g/dl Albumin/Globulin Ratio 1.30 Salicylates Level < 1.0mg/dl Acetaminophen Level < 10.0ug/ml Ethyl Alcohol Level < 10.0mg/dl Current Medications Medications (Trade) Dose Ordered Sig/Alexa Route PRN Reason Start Time Stop Time Status Last Admin Dose Admin Lorazepam (Ativan) 1 mg ONCE ONCE PO 09/14/16 11:00 09/14/16 11:01 DC 09/14/16 10:34 Lorazepam (Ativan) 1 mg ONCE ONCE PO 09/14/16 13:00 09/14/16 13:01 DC 09/14/16 12:53 Procedures/MDM MDM: Patient is a 31-year-old female who presents with suicidal ideation and worsening depression over the last month. Patient reports that she was very close to acting upon her suicidal ideation before being brought to the emergency department. Lab tests are unremarkable, tox screen is positive only for cannabis. The patient was anxious in the emergency department and received multiple doses of Ativan for anxiety. The patient is medically cleared for psychiatric evaluation at this time. Based upon her history, I believe that she is relatively high risk at this point for suicidality. Tele-psychiatrist recommended patient for voluntary psychiatric admission. Patient was signed out to Dr. Suarez at shift change pending attempts at placing the patient voluntarily. If unable to place the patient voluntarily, further evaluation will need to be performed by tele-psychiatry to determine need for 5150 hold. Departure Diagnosis: Primary Impression: Suicidal ideation Condition: Stable CHARLEE SANDOVAL MD Sep 14, 2016 08:32
[2016-09-14 08:34] LABS: BASOPHILS % 0.6 % (0.0-2.0); EOSINOPHILS # 0.2 10^3/ul (0.0-0.5); EOSINOPHILS % 2.2 % (0.0-7.0); HEMATOCRIT 40.3 % (37.0-47.0); HEMOGLOBIN 12.9 g/dl (12.0-16.0); LYMPHOCYTES # 1.7 10^3/ul (0.8-2.9); LYMPHOCYTES % 25.5 % (15.0-51.0); MEAN CORPUSCULAR VOLUME 78.3 fl (82.0-101.0); MEAN PLATELET VOLUME 9.3 fl (7.4-10.4); MONOCYTE # 0.6 10^3/ul (0.3-0.9); MONOCYTES % 8.1 % (0.0-11.0); NEUTROPHIL # 4.3 10^3/ul (1.6-7.5); NEUTROPHILS % 63.3 % (39.0-77.0); PLATELET COUNT 281 10^3/UL (140-415); RED BLOOD COUNT 5.15 10^6/ul (4.20-5.40); WHITE BLOOD COUNT 6.8 10^3/ul (4.8-10.8)
[2016-09-14 08:48] LABS: ALBUMIN 4.3 g/dl (3.3-4.9); CHLORIDE 105 mmol/L (97-110)
[2016-09-14 08:49] LABS: POTASSIUM 3.8 mmol/L (3.5-5.1); SODIUM 141 mmol/L (135-144)
[2016-09-14 08:51] LABS: ALKALINE PHOSPHATASE 56 IU/L (42-121); ANION GAP 18 (8-16); ASPARTATE AMINO TRANSFERASE 22 IU/L (15-46); BILIRUBIN,INDIRECT 0.6 mg/dl (0-1.1); BILIRUBIN,TOTAL 0.6 mg/dl (0.2-1.3); BLOOD UREA NITROGEN 13 mg/dl (7-20); CARBON DIOXIDE 22 mmol/L (21-31); CREATININE 0.58 mg/dl (0.44-1.00); GLUCOSE 105 mg/dl (70-220); TOTAL PROTEIN 7.6 g/dl (6.1-8.1)
[2016-09-14 08:52] LABS: ALANINE AMINOTRANSFERASE 31 IU/L (13-69); CALCIUM 9.5 mg/dl (8.4-10.2)
[2016-09-14 08:52] LABS: ADD UMIC YES; URINE BILIRUBIN (Dip) NEGATIVE (NEGATIVE); URINE BLOOD (Dip) 1+ (NEGATIVE); URINE COLOR LT. YELLOW (YELLOW); URINE GLUCOSE (Dip) NEGATIVE (NEGATIVE); URINE KETONES (Dip) NEGATIVE (NEGATIVE); URINE LEUKOCYTE ESTERASE (Dip) NEGATIVE (NEGATIVE); URINE NITRITE (Dip) NEGATIVE (NEGATIVE); URINE TOTAL PROTEIN (Dip) NEGATIVE (NEGATIVE); URINE UROBILINOGEN (Dip) 0.2 E.U./dL (0.1-1.0)
[2016-09-14 08:55] LABS: ACETAMINOPHEN < 10.0 ug/ml (10.0-30.0); ETHANOL < 10.0 mg/dl; SALICYLATE < 1.0 mg/dl (5.0-30.0)
[2016-09-14 09:04] LABS: BACTERIA,URINE FEW
[2016-09-14 09:17] LABS: BARBITURATES NEGATIVE (NEGATIVE); BENZODIAZEPINES NEGATIVE (NEGATIVE); CANNABINOIDS POSITIVE (NEGATIVE); COCAINE NEGATIVE (NEGATIVE); OPIATES NEGATIVE (NEGATIVE)
[2016-09-14] MEDS ORDERED: LORAZEPAM 1 MG TAB PO ONE ×3 (11:00→16:30)
--- NOTE | 2016-09-14 11:17 | PSY ---
Date/Time of Note Date/Time of Note DATE: 09/14/16 TIME: 14:13 Psychiatric Subjective Eval Consent Pt consented to telemedicine: Yes Subjective Evaluation Patient location: emergency Chief Complaint: feeling depressed , [place] Reason for consult: Suicidal ideation and depression History of present illness 31 yo female with ho depression and methamphetamine abuse, now depressed and suicidal (went to [facility] with plan to jump in) in context of coming down from meth amphetamine and also not taking meds. No psychosis. Wants inpatient admission. past Psych Hx: 2 past admits, no past suicide attempts Substance Hx: methamphetamine abuse PMHx: fibromyalgia Meds: none now All: toradol, morphine, phenergan Past psychiatric history as above Hospitalization: Suicidal Attempt(s) Medical history Problems Medical Problems: (1) Acute abdominal pain Status: Acute (2) Depression Status: Acute (3) Headache Status: Acute (4) Methamphetamine abuse Status: Acute (5) Patient left without being seen Status: Acute (6) Shoulder pain Status: Chronic (7) Suicidal ideation Status: Acute (8) Suicidal ideation Status: Acute Allergies: Coded Allergies: ketorolac (Verified Allergy, Intermediate, 09/01/16) Pt states, " I feel sick, vomiting, hives." morphine (Verified Allergy, Mild, 09/01/16) metoclopramide (Verified Allergy, Unknown, 09/01/16) promethazine (Unverified Allergy, Unknown, 09/01/16) tramadol (Unverified Allergy, Unknown, 09/01/16) Social History Marital status: single DPA/Conservatorship: Yes Psychiatric Objective Eval Mental Status Examination: Appearance: Disheveled Eye Contact: Fair Behavior: Cooperative Speech: Clear AFFECT: Blunt Mood: Depressed Though Process: Linear Thought Content: Normal Suicidal: Yes Homicidal: No On 72 hour hold: No Orientation: x4 Cognition: Alert Insight: Impared Judgement: Impared Attention Span: Intact Laboratory Results Laboratory Tests Test 09/14/16 07:45 09/14/16 08:05 Urine Color LT. YELLOW Urine Clarity CLEAR Urine pH 6.0 Urine Specific [place] 1.025 Urine Ketones NEGATIVE Urine Nitrite NEGATIVE Urine Bilirubin NEGATIVE Urine Urobilinogen 0.2 E.U./dL Urine Leukocyte Esterase NEGATIVE Urine Microscopic RBC 2-5/HPF Urine Microscopic WBC 2-5/HPF Urine Epithelial Cells FEW Urine Bacteria FEW Urine Hemoglobin 1+ Urine Glucose NEGATIVE% Urine Total Protein NEGATIVE Urine Test NEGATIVE Urine Opiates Screen NEGATIVE Urine Barbiturates NEGATIVE Urine Amphetamines Screen NEGATIVE Urine Benzodiazepines Screen NEGATIVE Urine Cocaine Screen NEGATIVE Urine Cannabinoids POSITIVE White Blood Count 6.810^3/ul Red Blood Count 5.1510^6/ul Hemoglobin 12.9g/dl Hematocrit 40.3% Mean Corpuscular Volume 78.3fl Mean Corpuscular Hemoglobin 25.0pg Mean Corpuscular Hemoglobin Concent 32.0g/dl Red Cell Distribution Width 16.0% Platelet Count 98684^3/UL Mean Platelet Volume 9.3fl Neutrophils % 63.3% Lymphocytes % 25.5% Monocytes % 8.1% Eosinophils % 2.2% Basophils % 0.6% Nucleated Red Blood Cells % 0.0/100WBC Neutrophils # 4.310^3/ul Lymphocytes # 1.710^3/ul Monocytes # 0.610^3/ul Eosinophils # 0.210^3/ul Basophils # 0.010^3/ul Nucleated Red Blood Cells # 0.010^3/ul Sodium Level 141mmol/L Potassium Level 3.8mmol/L Chloride Level 105mmol/L Carbon Dioxide Level 22mmol/L Anion Gap 18 Blood Urea Nitrogen 13mg/dl Creatinine 0.58mg/dl Glucose Level 105mg/dl Calcium Level 9.5mg/dl Total Bilirubin 0.6mg/dl Direct Bilirubin 0.00mg/dl Indirect Bilirubin 0.6mg/dl Aspartate Amino Transf (AST/SGOT) 22IU/L Alanine Aminotransferase (ALT/SGPT) 31IU/L Alkaline Phosphatase 56IU/L Total Protein 7.6g/dl Albumin 4.3g/dl Globulin 3.30g/dl Albumin/Globulin Ratio 1.30 Salicylates Level < 1.0mg/dl Acetaminophen Level < 10.0ug/ml Ethyl Alcohol Level < 10.0mg/dl Assessment and Plan Recommendation/Plan Medication Management 31 yo female with ho depression and methamphetamine abuse, here with SI and depression in context of meth abuse. -voluntary psych inpatient admit -for agitation, risperidone 2mg and ativan 2mg -for severe agitation haldol 5mg IM, ativan 2mg im, cogentin 1mg im -utox, would also place on benzodiazepine withdrawal precautions given ho benzo use [id number] Recommendation: RAHEEL HARDEN Sep 14, 2016 11:17
[2016-09-14 18:08] VITALS: BP 117/75; PULSE 79; RESP 20; TEMP 98.3
== END 2016-09-14 18:10 ==
LOC: E/R 07:25
DX: F32.9 Major depressive disorder, single episode, unspecified (principal); R40.2252 Coma scale, best verbal response, oriented, at arrival to emergency department; R45.851 Suicidal ideations; F17.210 Nicotine dependence, cigarettes, uncomplicated; R40.2142 Coma scale, eyes open, spontaneous, at arrival to emergency department; R40.2362 Coma scale, best motor response, obeys commands, at arrival to emergency department
CPT/HCPCS: 36415; 80053; 80306; 80307; 81001; 84703; 85025; Z7502; Z7610; 81003; 99285